=== PATIENT | male | born 1940 | race Caucasian/White ===

== ENCOUNTER 2019-04-01 15:43 | Outpatient (REF) | payer MEDICARE, BC, SELFPAY ==
[2019-04-01 22:19] LABS: Absolute Basophil Count 0.01 k/cumm (0.0-0.2); Absolute Eosinophil Count 0.07 k/cumm (0.0-0.7); Absolute Monocyte Count 0.63 k/cumm (0.11-0.7); Basophils % 0.2; Eosinophils % 1.4; HGB 13.5 g/dL (13.5-17.5); Lymphocytes % 15.7; Mean Corp. HGB Concentration 32.1 g/dL (32.0-36.0); Mean Corpuscular Volume 102.7 fL (80-95); Mean Platelet Volume 11.7 fL (8.0-11.0); Monocytes % 12.3; Neutrophils % 70.4; Platelet Count 199 x1000/uL (130-400); RBC 4.09 m/cumm (4.50-6.00); RBC Distribution Width 13.9 % (11.8-14.1); White Blood Cell Count 5.11 k/cumm (4.4-10.8)
[2019-04-01 22:28] LABS: Anion Gap 7.3 mmol/L (3-11); BUN 31 mg/dL (7-18); CO2 27.7 mmol/L (21.0-32.0); CREATININE 1.75 mg/dL (0.70-1.30); Calcium 8.8 mg/dL (8.5-10.1); Chloride 110 mmol/L (98-107); Estimated GFR 37.69 (mL/min/1.73m2); Glucose 100 mg/dL (74-106); Potassium 4.8 mmol/L (3.5-5.1); Sodium 145 mmol/L (136-145)
== END 2019-04-01 16:03 ==
LOC: NCHCN 15:43
PROVIDERS: PCP Internal Medicine; Visit Provider Internal Medicine
DX: R10.31 Right lower quadrant pain (principal); H57.89 Other specified disorders of eye and adnexa
CPT/HCPCS: 80048; 85025

== ENCOUNTER 2020-03-28 21:26 | Outpatient (REF) | payer MEDICARE, BC, SELFPAY ==
[2020-03-28 21:50] LABS: BUN 29 mg/dL (7-18); CREATININE 1.61 mg/dL (0.70-1.30); Calcium 8.7 mg/dL (8.5-10.1); Chloride 109 mmol/L (98-107); Estimated GFR 41.39 (mL/min/1.73m2); Glucose 119 mg/dL (74-106); Potassium 4.2 mmol/L (3.5-5.1); Sodium 143 mmol/L (136-145)
== END 2020-03-28 21:46 ==
LOC: NCHCN 21:26
PROVIDERS: PCP Internal Medicine; Visit Provider Internal Medicine
DX: I10 Essential (primary) hypertension (principal)
CPT/HCPCS: 80048

== ENCOUNTER 2020-09-30 18:06 | Outpatient (REF) | payer MEDICARE, BC, SELFPAY ==
[2020-09-30 14:00] LABS: HCT 43.3 % (40.0-50.0); HGB 13.6 g/dL (13.5-17.5); MCHC 31.4 % (32.0-36.0); MCV 98.6 fL (80-95); MPV 12.2 fL (8.0-11.0); Platelet Count 190 10^3/uL (130-400); RBC 4.39 10^6/uL (4.36-5.78); RDW 12.3 % (11.8-14.1); RDW-SD 44.9 fL
[2020-09-30 14:06] LABS: Anion Gap 9.9 mmol/L (3-11); BUN 24 mg/dL (7-18); CO2 25.1 mmol/L (21.0-32.0); CREATININE 1.4 mg/dL (0.70-1.30); Calcium 8.6 mg/dL (8.5-10.1); Chloride 109 mmol/L (98-107); Estimated GFR 48.52 (mL/min/1.73m2); Glucose 96 mg/dL (74-106); Potassium 4.3 mmol/L (3.5-5.1); Sodium 144 mmol/L (136-145)
== END 2020-09-30 18:07 | disposition home or self-care (01) ==
LOC: NCHCN 18:06
PROVIDERS: PCP Internal Medicine; Visit Provider Internal Medicine
DX: N18.9 Chronic kidney disease, unspecified (principal); I25.10 Atherosclerotic heart disease of native coronary artery without angina pectoris
CPT/HCPCS: 80048; 85027

== ENCOUNTER 2021-10-03 19:48 | Outpatient (REF) | payer MEDICARE, BC, SELFPAY ==
[2021-10-03 16:22] LABS: Anion Gap 6.8 mmol/L (3-11); BUN 31 mg/dL (7-18); CO2 26.2 mmol/L (21.0-32.0); CREATININE 1.4 mg/dL (0.70-1.30); Calcium 8.7 mg/dL (8.5-10.1); Calculated LDL 46 mg/dL (<100); Chloride 110 mmol/L (98-107); Cholesterol 117 mg/dL (<200); Glucose 96 mg/dL (74-106); HDL Cholesterol 57 mg/dL (40-60); Potassium 4.5 mmol/L (3.5-5.1); Sodium 143 mmol/L (136-145); Triglyceride 71 mg/dL (<150)
== END 2021-10-03 19:49 | disposition home or self-care (01) ==
LOC: NCHCN 19:48
PROVIDERS: PCP Internal Medicine; Visit Provider Internal Medicine
DX: I25.10 Atherosclerotic heart disease of native coronary artery without angina pectoris (principal); N18.9 Chronic kidney disease, unspecified
CPT/HCPCS: 80048; 80061

== ENCOUNTER 2022-08-30 21:24 | Outpatient (REF) | payer MEDICARE, BC, SELFPAY ==
--- OUTSIDE RECORDS SUMMARY | 2022-08-30 21:27 | XMS_ITS | Continuity of Care Document ---
Author Name Unknown Organization [facility] Address [address] [facility] [address] [place] Phone Care Team Providers Care It Systems Analyst Name Role Phone Ale JACOB, Myla Unavailable Unavailable Allergies, Adverse Reactions, Alerts Substance Reaction Status Criticality No Known Allergies Active No Inform ation Medications Medication Instructions Dosage Effective Dates (start - stop) Status Comments folic acid 1 mg tablet Take one tablet by mouth daily - Active methotrexate sodium 2.5 mg tablet take 6 by Oral route every week 6 - Active Nitrostat 0.[address] 1 tablet (0.4MG) by sublingual route at the 1st sign of attack; may repeat every 5 min until relief; if pain persists after 3 tablets in 15 min, prompt medical attention is recommended 0.4 MG - Active latanoprost 0.005 % Eye Drops instill 1 drop by ophthalmic route every day into affected eye(s)in the evening 1.00 drop - Active NAFTIN (unknown strength) apply by topical route every day to the affected and surrounding areas of skin Not Available - Active simvastatin 20 mg tablet take 1 tablet (20MG) by oral route every day in the evening 20 MG - Active metoprolol succinate ER 25 mg tablet,extended release 24 hr take 1 tablet (25MG) by oral route every day 25 MG - Active aspirin 81 mg tablet,delayed release take 1 tablet (81MG) by ORAL route every day 81 MG - Active Timoptic 0.25 % Eye Drops Apply one drop to affected eye(s) daily - Active Procedures Procedure Date Collection Of Venous Blood By Brando glover L, Comp Metabolic Panel L, C-reactive Protein L, Sed Rate, Erythrocyte; Automated L, CBC Auto Diff Offic/outpt E&m Estab Mod-hi 2 14 Kenalog-40/10 Mg Ultrason Guidan Needle Bx-rad 4 Arthrocentesis/aspir/inj; Sm J 14 Inj Mepivacaine Hcl, Per 10 Ml 14 Collection Of Venous Blood By Venipunctu re L, Comp Metabolic Panel L, C-reactive Protein L, Sed Rate, Erythrocyte; Automated L, CBC Auto Diff Offic/outpt E&m Estab Mod-hi 2 14 Thumb Support Thumb O Prene Collection Of Venous Blood By Venipunctu re L, Comp Metabolic Panel L, C-reactive Protein L, Sed Rate, Erythrocyte; Automated L, CBC Auto Diff Offic/outpt E&m Estab Mod-hi 2 14 DMARD Prescribed Current Medication Documented 4 Functional Assessment And POC 4 Collection Of Venous Blood By Venipunctu re L, Comp Metabolic Panel L, C-reactive Protein L, Sed Rate L, CBC Auto Diff Admin Flu Virus Vac-no Phys Sr 13 Offic/outpt E&m Estab Mod-hi 2 13 OA Pain And Function Assessment 013 Current Medication Documented 3 OA Eval Use Of OTC Meds RA Functional Status Assessed 3 Functional Assessment And POC 3 Flulaval Vacc Influ Split [id number]> Jan Routine Venipunct/finger/heel 3 L, Comp Metabolic Panel L, C-reactive Protein L, Sed Rate L, CBC Auto Diff Offic/outpt E&m Estab Mod-hi 2 13 Current Medication Documented 3 RA Functional Status Assessed 3 Functional Assessment And POC 3 Xray Foot; Complt Mini 3 Views 13 Xray Foot; Complt Mini 3 Views 13 Xray Hand And Wrist Mini 3 Views 2012 Xray Hand And Wrist Mini 3 Views 2012 Routine Venipunct/finger/heel 3 L, Comp Metabolic Panel L, C-reactive Protein L, Sed Rate L, CBC Auto Diff Offic/outpt E&m Estab Mod-hi 2 13 DMARD Prescribed Current Medication Documented 3 Low RA Disease Activity Low RA Disease Activity RA Functional Status Assessed 3 Functional Assessment And POC 3 Flulaval Vacc Influ Split [id number]> Mar Admin Flu Virus Vac-no Phys Sr 12 Routine Venipunct/finger/heel 2 L, Comp Metabolic Panel L, C-reactive Protein L, Sed Rate L, CBC Auto Diff Offic/outpt E&m Estab Mod-hi 2 12 EMR Used This Encounter RA Functional Status Assessed 2 Offic/outpt E&m Estab Mod-hi 2 12 OA Pain And Function Assessment 012 EMR Used This Encounter OA Eval Use Of OTC Meds RA Functional Status Assessed 2 Routine Venipunct/finger/heel 2 L, Comp Metabolic Panel L, C-reactive Protein L, Sed Rate L, CBC Auto Diff Xray Foot; Complt Mini 3 Views 12 Xray Hand And Wrist Mini 3 Views 2011 Routine Venipunct/finger/heel 2 L, Comp Metabolic Panel L, C-reactive Protein L, Sed Rate L, CBC Auto Diff Offic/outpt E&m Estab Mod-hi 2 12 OA Pain And Function Assessment 012 EMR Used This Encounter OA Eval Use Of OTC Meds Xray Foot; Complt Mini 3 Views 12 Xray Hand And Wrist Mini 3 Views 2011 Routine Venipunct/finger/heel 2 L, Comp Metabolic Panel L, C-reactive Protein L, Sed Rate L, CBC Auto Diff Offic/outpt E&m Estab Low-mod 2 DMARD Prescribed EMR Used This Encounter Low RA Disease Activity Routine Venipunct/finger/heel 1 L, Comp Metabolic Panel L, C-reactive Protein L, Sed Rate L, CBC Auto Diff Offic/outpt E&m Estab Low-mod 1 RA Functional Status Assessed 1 EMR Used This Encounter Low RA Disease Activity Xray Foot; Complt Mini 3 Views 11 Xray Foot; Complt Mini 3 Views 11 Xray Hand And Wrist Mini 3 Views 2010 Xray Hand And Wrist Mini 3 Views 2010 Routine Venipunct/finger/heel 1 L, Comp Metabolic Panel L, C-reactive Protein L, Sed Rate L, CBC Auto Diff Offic/outpt E&m Estab Mod-hi 2 11 RA Functional Status Assessed 1 EMR Used This Encounter Low RA Disease Activity Routine Venipunct/finger/heel 1 L, Comp Metabolic Panel L, C-reactive Protein L, Sed Rate L, CBC Auto Diff Offic/outpt E&m Estab Mod-hi 2 11 RA Functional Status Assessed 1 EMR Used This Encounter Low RA Disease Activity Offic/outpt E&m Estab Mod-hi 2 11 DMARD Prescribed RA Functional Status Assessed 1 EMR Used This Encounter Low RA Disease Activity Routine Venipunct/finger/heel 1 L, Comp Metabolic Panel L, C-reactive Protein L, Sed Rate L, CBC Auto Diff Offic/outpt E&m Estab Mod-hi 2 10 RA Functional Status Assessed 0 EMR Used This Encounter Routine Venipunct/finger/heel 0 L, Comp Metabolic Panel L, C-reactive Protein L, Sed Rate L, CBC Auto Diff Xray Foot; Complt Mini 3 Views 10 Xray Foot; Complt Mini 3 Views 10 Xray Hand And Wrist Mini 3 Views 2009 Xray Hand And Wrist Mini 3 Views 2009 Offic/outpt E&m [facility] Mod-hi 2 10 DMARD Prescribed ERX Prescription RA Functional Status Assessed 0 EMR Used This Encounter Low RA Disease Activity Offic/outpt E&m Estab Mod-hi 2 10 Routine Venipunct/finger/heel 0 L, Comp Metabolic Panel L, C-reactive Protein L, Sed Rate L, CBC Auto Diff L, Handling Of Lab Specimens Routine Venipunct/finger/heel 0 L, Comp Metabolic Panel L, C-reactive Protein L, Sed Rate L, CBC Auto Diff Xray Pelvis 1 Or 2 Views Offic/outpt E&m Estab Low-mod 9 Offic/outpt E&m Estab Mod-hi 2 09 Xray Shoulder; Complt Mini 2 Views Offic/outpt E&m Estab Mod-hi 2 09 Offic/outpt E&m Estab Mod-hi 2 09 Offic/outpt E&m Estab Mod-hi 2 08 Not At Risk For Fall L, Comp Metabolic Panel L, C-reactive Protein L, CBC Auto Diff L, Sed Rate Routine Venipunct/finger/heel 8 Xray Foot; Complt Mini 3 Views 08 Xray Foot; Complt Mini 3 Views 08 Xray Hand And Wrist Mini 3 Views 2007 Xray Hand And Wrist Mini 3 Views 2007 Offic/outpt E&m Estab Mod-hi 2 08 Offic/outpt E&m Estab Mod-hi 2 08 Offic/outpt E&m Estab Mod-hi 2 07 L, Comp Metabolic Panel L, C-reactive Protein L, CBC Auto Diff L, Sed Rate Routine Venipunct/finger/heel 7 Offic/outpt E&m Estab Mod-hi 2 07 L, C-reactive Protein L, Sed Rate Routine Venipunct/finger/heel 7 Offic/outpt E&m Estab Mod-hi 2 07 Rad Exam Ft; Complt Mini 3 Vie 07 L, Comp Metabolic Panel L, C-reactive Protein L, CBC Auto Diff L, Sed Rate Routine Venipunct/finger/heel 7 Offic/outpt E&m Estab Mod-co 2 07 L, Comp Metabolic Panel L, C-reactive Protein L, CBC Auto Diff L, Sed Rate Routine Venipunct/finger/heel 7 Offic/outpt E&m Estab Mod-co 2 06 L, Comp Metabolic Panel L, C-reactive Protein L, CBC Auto Diff L, Sed Rate Routine Venipunct/finger/heel 6 Offic/outpt E&m Estab Mod-co 2 06 L, Comp Metabolic Panel L, C-reactive Protein L, CBC Auto Diff L, Sed Rate L, Urinalysis Routine Venipunct/finger/heel 6 Offic/outpt E&m Estab Mod-co 2 06 L, Comp Metabolic Panel L, C-reactive Protein L, CBC Auto Diff L, Sed Rate L, Urinalysis Routine Venipunct/finger/heel 6 Offic/outpt E&m Estab Mod-co 2 06 L, Comp Metabolic Panel L, C-reactive Protein L, CBC Auto Diff L, Sed Rate Routine Venipunct/finger/heel 6 Offic/outpt E&m Estab Mod-co 2 05 L, Comp Metabolic Panel L, C-reactive Protein L, CBC Auto Diff L, Sed Rate Routine Venipunct/finger/heel 5 Advance Directives Directive Yes / No Effective Date File Name No Information Encounters Encounter Description Practice Location Reason(s) For Visit Diagnoses Date Provider Providers Copied on Encounter [facility] , [address] [place] [address], [place], , [place] tel:[phone] [place] No Information 5 Ale Lanza. [address] [address], [place], [place], , [place]. tel:[phone] [facility] , [address] [place] [address], [place], , [place] tel:[phone] Rex Goodrich No Information 5 Kathy Bryant. [address] [facility] [address], [place], , [place]. tel:[phone] Referring Provider: Manny Chavez, [address] [facility] [address], [place], . tel:[phone] Offic/outpt E&m Estab Mod-hi 2 [facility] , [address] [place] [address] [place], , [place] tel:[phone] Rex Goodrich Rheumatoid arthritis (chief complaint) Rheumatoid ArthritisLoca lised, primary osteoarthriti s of the handCurrent use of high risk medicationsTr igger finger 4 Kathy Bryant. [address] [facility] [address], [place], , [place]. tel:[phone] Referring Provider: Manny Chavez, [address] [facility] [address], [place], . tel:[phone] Offic/outpt E&m Estab Mod-hi 2 [facility] , [address] [place] [address] [place], , [place] tel:[phone] Rex Goodrich Osteoarthriti s (chief complaint) Rheumatoid ArthritisLoca lised, primary osteoarthriti s of the handCurrent use of high risk medications 4 Kathy Bryant. [address] [facility] [address], [place], , [place]. tel:[phone] Referring Provider: Manny Chavez, [address] [facility] [address], [place] Good[place] MD, . tel:[phone] Offic/outpt E&m Estab Mod-hi 2 [facility] , [address] [place] [address], [place], , [place] tel:[phone] Rex Goodrich Rheumatoid arthritis (chief complaint) Joint Pain-handRheu matoid ArthritisTher apeutic Drug Monitoring 4 Kathy Bryant. [address] [facility] [address], [place], , [place]. tel:[phone] Referring Provider: Manny Chavez, [address] [place], [place] [address]e [facility] [address], Rex Goodrich MD, . tel:[phone] Offic/outpt E&m Estab Mod-hi 2 [facility] , [address] [place] [address], [place], , [place] tel:[phone] Rex Goodrich osteoarthriti s (chief complaint) Osteoarthriti s, ShoulderRheum atoid ArthritisTher apeutic Drug MonitoringDiz Lisa 3 Kathy Bryant. [address] [facility] [address], [place], , [place]. tel:[phone] Referring Provider: Manny Chavez, [address] [place], [place] [address] [facility] [address], Rex Goodrich MD, . tel:[phone] Offic/outpt E&m Estab Mod-hi 2 [facility] , [address] [place] [address], [place], , [place] tel:[phone] Rex Goodrich Rheumatoid arthritis (chief complaint) Rheumatoid ArthritisTher apeutic Drug MonitoringSpr ain Of RibsSprain Of Ribs 3 Kathy Bryant. [address] [facility] [address], [place], , [place]. tel:[phone] Referring Provider: Manny Chavez, [address], [place], . tel:[phone] Offic/outpt E&m Estab Mod-hi 2 [facility] , [address] [place] [address], [place], , [place] tel:[phone] Rex Goodrich Rheumatoid arthritis (chief complaint)Ost eoarthritis (chief complaint) Rheumatoid ArthritisTher apeutic Drug MonitoringSpr ain Of RibsSprain Of Ribs 3 Kathy Bryant. [address], [place], , [place]. tel:[phone] Referring Provider: Manny Chavez, [address] [place] [address] Ave [facility] [address], Rex Goodrich MD, . tel:[phone] Offic/outpt E&m Estab Mod-hi 2 [facility] , [address] [place] [address], [place], , [place] tel:[phone] Rex Good[place] Rheumatoid arthritis (chief complaint)PMR (chief complaint) Rheumatoid ArthritisTher apeutic Drug MonitoringInf luenza Vaccine 2 Kathy Bryant. [address] [facility] [address], [place], , [place]. tel:[phone] Referring Provider: Manny Chavez, [address] [place] [address] Ave [address], [place] Good[place] MD, . tel:[phone] Offic/outpt E&m Estab Mod-hi 2 [facility] , [address] [place] [address], [place], , tel:[phone] Rex Goodrich Rheumatoid arthritis (chief complaint) Rheumatoid ArthritisOste oarthritis, ShoulderThera peutic Drug Monitoring 2 Kathy Bryant. [address] [facility] [address], [place], , [place]. tel:[phone] Referring Provider: Manny Chavez, [address], [place], . tel:[phone] Offic/outpt E&m Estab Mod-hi 2 [facility] , [address] [place] [address], [place], , [place] tel:[phone] Rex Goodrich Rheumatoid arthritis (chief complaint)PMR (chief complaint) Rheumatoid ArthritisTher apeutic Drug MonitoringOst eoarthritis, Shoulder 2 Kathy Bryant. [address] [facility] [address], [place], , [place]. tel:[phone] Referring Provider: Manny Chavez, [address] [facility] [address], [place] Good[place] MD, . tel:[phone] Offic/outpt E&m Estab Low-mod [facility] , [address] [place] [address], [place], , [place] tel:[phone] Rex Goodrich Rheumatoid arthritis (chief complaint)Elizabeth nt pain-Pelvis (chief complaint)Philip ymyalgia Rheum (chief complaint) Rheumatoid ArthritisTher apeutic Drug Monitoring 2 Kathy Bryant. [address] [facility] [address], [place], , [place]. tel:[phone] Referring Provider: Manny Chavez, [address] [facility] [address], [place] Good[place] MD, . tel:[phone] Offic/outpt E&m Estab Low-mod [facility] , [address] [place] [address], [place], , [place] tel:[phone] Rex Goodrich Rheumatoid Arthritis (chief complaint)PMR (chief complaint) No Information 1 Kathy Bryant. [address] [facility] [address]Rex [place], , [place]. tel:[phone] Referring Provider: Manny Chavez, [address] [facility] [address]ex [place], . tel:[phone] Offic/outpt E&m Estab Mod-hi 2 [facility] , [address] [place] [address], [place], , [place] tel:[phone] Rex Good[place] Rheumatoid Arthritis (chief complaint)PMR (chief complaint) No Information 1 Kathy Bryant. [address] [facility] [address], [place], , [place]. [phone] Referring Provider: Manny Chavez, [address] [facility] [address], [place] Good[place] MD, . tel:[phone] Offic/outpt E&m Estab Mod-hi 2 [facility] , [address] [place] [address], [place], , [place] tel:[phone] Rex Goodrich Rheumatoid Arthritis (chief complaint)PMR (chief complaint) Sleep Apnea Nec/nos 1 Kathy Bryant. [address] [facility] [address], [place], , [place]. [phone] Referring Provider: Manny Chavez, [address] [place], [place] [address] [facility] [address], Rex Goodrich MD, . tel:[phone] Offic/outpt E&m Estab Mod-hi 2 [facility] , [address] [place] [address], [place], , [place] tel:[phone] Rex Goodrich Rheumatoid Arthritis (chief complaint)PMR (chief complaint) No Information 1 Kathy Bryant. [address] [facility] [address], [place], , [place]. tel:[phone] Referring Provider: Manny Chavez, [address] [facility] [address], [place] MD, . tel:[phone] Offic/outpt E&m Estab Mod-hi 2 [facility] , [address] [place] [address], [place], , [place] tel:[phone] JARROD Rheumatoid Arthritis (chief complaint)PMR (chief complaint) No Information 0 Kathy Bryant. [address] [facility] [address], [place], , [place]. tel:[phone] Referring Provider: Manny Chavez, [address] [facility] [address], [place] MD, . tel:[phone] Offic/outpt E&m Estab Mod-hi 2 [facility] , [address] [place] [address] [place], , [place] tel:[phone] [place] Rheumatoid Arthritis (chief complaint)PMR (chief complaint) No Information 0 Kathy Bryant. [address] [facility] [address], [place], , [place]. tel:[phone] Referring Provider: Manny Chavez, [address] [facility] [address], [place] MD, . tel:[phone] Offic/outpt E&m Estab Mod-hi 2 [facility] , [address] [place] [address], , [place] [phone] JARROD Rheumatoid Arthritis (chief complaint)PMR (chief complaint) Rheumatoid ArthritisLong Term High Risk Meds 0 Kathy Bryant. [address] [facility] [address], [place], , [place]. tel:[phone] Referring Provider: Manny Chavez, [address] [facility] [address], [place], . tel:[phone] [facility] , [address] [place] [address], , [place] tel:[phone] [place] No Information 0 Kathy Bryant. [address] [facility] [address], , [place]. tel:[phone] Referring Provider: Manny Chavez, [address] [facility] [address], . tel:[phone] Offic/outpt E&m Estab Low-mod [facility] , [address] [place] [address] [place], , [place] [phone] JARROD Rheumatoid Arthritis (chief complaint)PMR (chief complaint) No Information 9 Kathy Bryant. [address] [facility] [address], , [place]. tel:[phone] Referring Provider: Manny Chavez, [address], [place], . tel:[phone] Offic/outpt E&m Estab Mod-hi 2 [facility] , [address] [place] [address], [place], , [place] tel:[phone] [place] Rheumatoid Arthritis (chief complaint)PMR (chief complaint) No Information 9 Kathy Bryant. [address] [facility] [address], [place], , [place]. tel:[phone] Referring Provider: Manny Chavez, [address] [facility] [address], [place] MD, . tel:[phone] Offic/outpt E&m Estab [facility]-hi 2 [facility] , [address] [place] [address], [place], , [place] tel:[phone] [place] Rheumatoid Arthritis (chief complaint)PMR (chief complaint) No Information 9 Kathy Bryant. [address] [facility] [address], [place], , [place]. tel:[phone] Referring Provider: Manny Chavez, [address], [place], . tel:[phone] Offic/outpt E&m Estab Mod-hi 2 [facility] , [address] [place] [address], [place], , [place] tel:[phone] [place] Rheumatoid Arthritis (chief complaint)PMR (chief complaint) No Information 9 Kathy Bryant. [address] [facility] [address], [place], , [place]. tel:[phone] Referring Provider: Manny Chavez, [address], [place], . tel:[phone] Offic/outpt E&m Estab Mod-hi 2 [facility] , [address] [place] [address], [place], , [place] tel:[phone] [place] Rheumatoid Arthritis (chief complaint)PMR (chief complaint) No Information 8 Kathy Bryant. [address] [facility] [address], [place], , [place]. tel:[phone] Referring Provider: Manny Chavez, [address] [facility] [address], [place], . tel:[phone] Offic/outpt E&m Estab Mod-hi 2 [facility] , [address] [place] [address], [place], , [place] tel:[phone] [place] Rheumatoid Arthritis (chief complaint)PMR (chief complaint) No Information 8 Kathy Bryant. [address] [facility] [address], [place], , [place]. tel:[phone] Referring Provider: Manny Chavez, [address] [place], [place] [address] [facility] [address], Rex Good[place] MD, . tel:[phone] Offic/outpt E&m Estab Mod-hi 2 [facility] , [address] [place] [address], [place], , [place] tel:[phone] [place] Rheumatoid Arthritis (chief complaint)PMR (chief complaint) Rheumatoid ArthritisPoly myalgia RheumaticaLon g Term High Risk Meds 8 Kathy Bryant. [address] [facility], [place], , [place]. tel:[phone] Referring Provider: Manny Chavez, [address] [facility] [address], [place] MD, . tel:[phone] [facility] , [address] [place] [address], [place], , [place] tel:[phone] [place] Rheumatoid Arthritis (chief complaint)PMR (chief complaint) Rheumatoid ArthritisPoly myalgia RheumaticaLon g Term High Risk MedsLong Term High Risk Meds 8 Kathy Bryant. [address] [facility] [address], [place], , [place]. tel:[phone] Referring Provider: Manny Chavez, [address] [facility] [address], [place] MD, . tel:[phone] Offic/outpt E&m Estab Mod-hi 2 [facility] , [address] [place] [address], [place], , [place] tel:[phone] PMR (chief complaint)Rhe umatoid Arthritis (chief complaint) Rheumatoid ArthritisPoly myalgia Rheumatica 7 Kathy Bryant. [address] [facility], [place], , [place]. tel:[phone] Referring Provider: Manny Chavez, [address] [facility] 600, [place], . tel:[phone] Offic/outpt E&m Estab Mod-hi 2 [facility] , [address] [place] [address], [place], , [place] tel:[phone] Rheumatoid Arthritis (chief complaint) Rheumatoid ArthritisPoly myalgia RheumaticaCat aract Nos 7 Kathy Bryant. [address] [facility] [address], [place], , [place]. tel:[phone] Referring Provider: Ishan Shafer MD W, [address], [id number]. tel:[phone] Offic/outpt E&m Estab Mod-hi 2 [facility] , [address] [place] [address] [place], , [place] tel:[phone] [place] No Information 7 Kathy Bryant. [address] [facility] [address], [place], , [place]. tel:[phone] Referring Provider: Ishan Shafer MD W, [address], [id number]. tel:[phone] Offic/outpt E&m Estab Mod-hi 2 [facility] , [address] [place], [place] [address], , [place] tel:[phone] [place] No Information 7 [facility] Manny. [address] [employer] [address], [place], , [place]. tel:[phone] Referring Provider: Manny Chavez, [address] [facility] [address], Rex Goodrich MD, . tel:[phone] Offic/outpt E&m Estab Mod-hi 2 [facility] , [address] [place], [place] [address], , [place] tel:[phone] [place] No Information 6 Kathy Bryant. [address] [facility], [place], , [place]. tel:[phone] Referring Provider: Ishan Shafer MD W, [address], . tel:[phone] Offic/outpt E&m Estab Mod-hi 2 [facility] , [address] [place] [address], [place], , [place] tel: [phone] No Information 6 Kathy Bryant. [address] [facility] [facility] [address], [place], , [place]. tel:[phone] Referring Provider: Manny Chavez, [address] [facility], [place], . tel:[phone] Offic/outpt E&m Estab Mod-hi 2 [facility] , [address] [place] [address], [place], , [place] tel:[phone] [place] No Information 6 Kathy Bryant. [address] [facility] [address], [place], , [place]. tel:[phone] Referring Provider: Ishan Shafer MD W, [address] [facility] [address], [id number]. tel:[phone] Offic/outpt E&m Estab Mod-hi 2 [facility] , [address] [place], [place] [address], , [place] tel:[phone] [place] No Information 6 No Information Referring Provider: Ishan Shafer MD W, [address] [facility] [address], [place], [place], [id number]. tel:[phone] Offic/outpt E&m Estab Mod-hi 2 [facility] , [address] [place] [address], [place], [id number], tel:[phone] [place] No Information 5 No Information Referring Provider: Ishan Shafer MD W, [address] [facility] [address], [place], [place], [id number]. tel:[phone] Family History Family Member Type Diagnosis Age At Onset No Information Immunizations Vaccine Date Status Comments Flu, adult administered Source: New Imm unization Record Flulaval Vacc Influ Split [id number]> administered Source: New Immuniza tion Record Payers Payer name Insurance type Covered libertarian ID Authoriza tion(s) Medicare MB [id number] Social History Type Description Quantity Date Captured Comments Alcohol Use Details Unknown Caffeine Use Details Unknown Tobacco Use Status No Information Smoking Status No Information Sex Male Chief Complaint And Reason For Visit No Information Plan Of Treatment Date Type Action Status Goal Hand X-ray. Due on 14 due Goal Foot X-ray. Due on 14 due Goal Hand X-ray. Due on 14 due Goal Foot X-ray. Due on 14 due Referral Ordered: Xray Hand And Wrist Mini 3 Views Bilateral ordered Referral Ordered: Xray Foot; Complt Mini 3 Views Bilateral ordered Patient Education Polymyalgia Rheumatica: After Your Vis completed Patient Education Rheumatoid Arthritis: A fter Your Visit completed History Of Present Illness Encounter Date Complaint History Of Prese nt Illness Rheumatoid arthritis Onset was g radual. Severity level is mild-moderate. Location of the pain is left hand. The patient describes the discomfort as achy and dull. It occurs intermittently. The problem is stable. Symptom is aggravated by sleep. Relieving factors include Rx medications. He is experiencing fatigue. Pertinent negatives include abdominal pain, activity limitation, eye symptoms, joint swelling, morning stiffness, paresthesia, rash, SICCA symptoms, weakness and weight loss. Osteoarthritis Onset occurred erich chapman. Severity level is moderate. Duration: varies. Location of the pain is bilateral hand. The patient describes it as stiff, dull and achy. It occurs persistently. The problem is worsening. Symptom is aggravated by using hands and grasping objects. Denies relieving factors. Associated symptoms include fatigue, gelling phenomenon and weakness. Pertinent negatives include dyspnea, fever, nocturnal pain, paresthesia, rash and weight loss. Additional information: Right thumb MP and left hand 3rd PIP most affected. Has not had pain, swelling, or AM stiffness. Rheumatoid arthritis Onset was erich huang. Severity level is moderate. Location of the pain is left hand and when present. The patient describes the discomfort as achy, pain with use and dull. It occurs intermittently. The problem is stable. Symptom is aggravated by gripping. Denies relieving factors. He is experiencing fatigue, joint swelling, morning stiffness for 1/2 hour(s) and weakness. Pertinent negatives include abdominal pain, activity limitation, anorexia, eye symptoms, headache, paresthesia, rash, SICCA symptoms and weight loss. osteoarthritis Onset occurred erich chapman. Severity level is moderate-severe. Duration: varies. Location of the pain is right shoulder. The patient describes it as stiff, dull and achy. It occurs intermittently. The problem is fluctuating. Symptom is aggravated by raising arms. Denies relieving factors. Associated symptoms include fatigue and gelling phenomenon. Pertinent negatives include claudication, diarrhea, dyspnea, fever, incontinence (fecal), incontinence (urinary), nocturnal pain, paresthesia, rash, weakness and weight loss. Rheumatoid arthritis Onset was erich huang. Severity level is mild-moderate. Location of the pain is bilateral hand and when present. The patient describes the discomfort as achy, pain with use, dull and when present. It occurs intermittently. The problem is stable. Symptom is aggravated by gripping and when present. Relieving factors include Rx medications. He is experiencing fatigue. Pertinent negatives include abdominal pain, activity limitation, anorexia, eye symptoms, headache, joint swelling, limping, morning stiffness, paresthesia, rash, SICCA symptoms, weakness and weight loss. Rheumatoid arthritis Onset was g radabdi. Severity level is moderate. Location of the pain is bilateral hand and when present. The patient describes the discomfort as achy, pain with use, dull and when present. It occurs intermittently. The problem is stable. Symptom is aggravated by gripping and when present. Relieving factors include Rx medications. He is experiencing fatigue. Pertinent negatives include abdominal pain, headache, joint swelling, morning stiffness, paresthesia, rash, SICCA symptoms, weakness and weight loss. Osteoarthritis Rheumatoid arthritis Onset was g radual. Severity level is moderate. Location of the pain is bilateral hand and when present. The patient describes the discomfort as achy, pain with use, dull and when present. It occurs intermittently. The problem is stable. Symptom is aggravated by gripping and when present. Relieving factors include Rx medications. He is experiencing fatigue. Pertinent negatives include abdominal pain, activity limitation, anorexia, eye symptoms, headache, joint swelling, limping, morning stiffness, paresthesia, rash, SICCA symptoms, weakness and weight loss. PMR Rheumatoid arthritis Onset was g radual. Severity level is moderate. Location of the pain is bilateral hand and when present. The patient describes the discomfort as achy, pain with use, dull and when present. It occurs intermittently. The problem is stable. Denies aggravating factors. Relieving factors include Rx medications. He is experiencing fatigue. Pertinent negatives include abdominal pain, activity limitation, anorexia, eye symptoms, headache, joint swelling, limping, morning stiffness, paresthesia, rash, SICCA symptoms, weakness and weight loss. PMR Rheumatoid arthritis Onset was g radual. Severity level is moderate. Location of the pain is bilateral hand. The patient describes the discomfort as dull. It occurs intermittently. The problem is stable. Denies aggravating factors. Relieving factors include Rx medications. He is experiencing fatigue. Pertinent negatives include abdominal pain, activity limitation, anorexia, eye symptoms, headache, joint swelling, limping, morning stiffness, paresthesia, rash, SICCA symptoms, weakness and weight loss. Joint pain-Pelvis Polymyalgia Rheum Rheumatoid arthritis Onset was g radual. Severity level is moderate. Location of the pain is bilateral hand. It occurs intermittently. The problem is stable. Denies aggravating factors. Relieving factors include Rx medications. He is experiencing fatigue. Pertinent negatives include abdominal pain, activity limitation, anorexia, eye symptoms, headache, joint swelling, limping, morning stiffness, paresthesia, rash, SICCA symptoms, weakness and weight loss. Instructions Date Instruction Additional Infor mation No Information Assessments Type Assessment Date No Information
--- OUTSIDE RECORDS SUMMARY | 2022-08-30 21:27 | XMS_ITS | CCD ---
Author Name Unknown Address [address] [place] [id number] Organization Unknown Address [address] [place] [id number] Care Team Providers [facility] [employer] [facility] Name Role Phone MAL ESCALANTE MD Attending Physician [phone] Vital Signs Unknown or Not Available. Allergies Allergy Code Allergy Type Reaction Status No Known Drug Allergies 0 No known drug allergies Active Procedures Unknown or Not Available. History of Immunizations Unknown or Not Available. 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 Active Medications Unknown or Not Available. Medications Administered During Visit Unknown or Not Available. Encounters Encounter Diagnosis Diagnosis Code Start Date Unilateral inguinal hernia, without obstruction or gangrene, not specified as recurrent [id number] 10/25/2020 Social History Smoking Status Code Start Date End Date Never smoker [id number] Patient Decision Aids Unknown or Not Available. Discharge Instructions You were admitted to [facility] on 10/25/2020 12:52 with a principal diagnosis of Unilateral inguinal hernia, without obstruction or gangrene, not specified as recurrent You were discharged from [facility] on 10/25/2020 12:52 Should you have any questions prior to discharge, please contact a member of your healthcare team. If you have left the hospital and have any questions, please contact your primary care physician. Chief Complaint and Reason For Visit Unknown or Not Available. Function Status Unknown or Not Available. Plan of Care Unknown or Not Available. Referral/Transition of Care Unknown or Not Available.
[2022-08-30 21:28] LABS: HCT 45.5 % (40.0-50.0); HGB 14.6 g/dL (13.5-17.5); MCH 31.7 pg (27.0-33.0); MCHC 32.1 % (32.0-36.0); MCV 99 fL (80-95); MPV 12.4 fL (8.0-11.0); Platelet Count 141 10^3/uL (130-400); RBC 4.61 10^6/uL (4.36-5.78); RDW 13.2 % (11.8-14.1); RDW-SD 47.7 fL; WBC 6.61 10^3/uL (4.4-10.8)
[2022-08-30 21:39] LABS: BUN 25 mg/dL (7-18); CREATININE 1.6 mg/dL (0.70-1.30); Calcium 8.9 mg/dL (8.5-10.1); Chloride 107 mmol/L (98-107); Estimated GFR 42.49 (mL/min/1.73m2); Glucose 102 mg/dL (74-106); Potassium 4.9 mmol/L (3.5-5.1); Sodium 142 mmol/L (136-145)
[2022-08-30 22:12] LABS: NT-proBNP 238 pg/mL (<300)
== END 2022-08-30 21:25 | disposition home or self-care (01) ==
LOC: NCHCN 21:24
PROVIDERS: PCP Internal Medicine; Visit Provider Family Medicine
DX: R53.1 Weakness (principal)
CPT/HCPCS: 80048; 85027; 83880

== ENCOUNTER 2023-10-03 08:25 | Outpatient (REF) | payer MEDICARE, BC, SELFPAY ==
[2023-10-03 14:23] LABS: HCT 45.6 % (40.0-50.0); MCH 32.2 pg (27.0-33.0); MCHC 32.9 % (32.0-36.0); MCV 98 fL (80-95); MPV 12.6 fL (8.0-11.0); Platelet Count 161 10^3/uL (130-400); RBC 4.66 10^6/uL (4.36-5.78); RDW-SD 46.2 fL
[2023-10-03 15:00] LABS: ALT 26 U/L (16-63); AST 21 U/L (15-37); Albumin 3.9 g/dL (3.4-5.0); Alkaline Phosphatase 85 U/L (46-116); Anion Gap 8.9 mmol/L (3-11); BUN 30 mg/dL (7-18); Bilirubin, Total 1.82 mg/dL (0.2-1.0); CO2 26.1 mmol/L (21.0-32.0); CREATININE 1.7 mg/dL (0.70-1.30); Calcium 9.2 mg/dL (8.5-10.1); Chloride 108 mmol/L (98-107); Estimated GFR 39.02 (mL/min/1.73m2); Glucose 101 mg/dL (74-106); Potassium 4.5 mmol/L (3.5-5.1); Sodium 143 mmol/L (136-145)
== END 2023-10-03 08:26 | disposition home or self-care (01) ==
LOC: NCHCN 08:25
PROVIDERS: PCP Internal Medicine; Visit Provider Internal Medicine
DX: I25.10 Atherosclerotic heart disease of native coronary artery without angina pectoris (principal); N18.9 Chronic kidney disease, unspecified; R79.89 Other specified abnormal findings of blood chemistry; Z00.00 Encounter for general adult medical examination without abnormal findings
CPT/HCPCS: 80053; 85027

== ENCOUNTER 2024-12-04 16:24 | Outpatient (REF) | payer MEDICARE, BC, SELFPAY ==
[2024-12-04 21:13] LABS: HCT 43.9 % (40.0-50.0); HGB 14.3 g/dL (13.5-17.5); MCH 32.5 pg (27.0-33.0); MCHC 32.6 % (32.0-36.0); MCV 100 fL (80-95); MPV 12.8 fL (8.0-11.0); Platelet Count 159 10^3/uL (130-400); RBC 4.40 10^6/uL (4.36-5.78); RDW 13.2 % (11.8-14.1); RDW-SD 49.0 fL; WBC 6.98 10^3/uL (4.4-10.8)
[2024-12-04 21:21] LABS: Anion Gap 5.5 mmol/L (3-11); BUN 29 mg/dL (7-18); CO2 29.5 mmol/L (21.0-32.0); Calcium 9.5 mg/dL (8.5-10.1); Chloride 111 mmol/L (98-107); Estimated GFR 45.06 (mL/min/1.73m2); Glucose 96 mg/dL (74-106); Potassium 4.7 mmol/L (3.5-5.1); Sodium 146 mmol/L (136-145)
== END 2024-12-04 16:25 | disposition home or self-care (01) ==
LOC: NCHCN 16:24
PROVIDERS: PCP Internal Medicine; Visit Provider Internal Medicine
DX: I10 Essential (primary) hypertension (principal)
CPT/HCPCS: 80048; 85027